=== PATIENT | female | born 1965 | race Caucasian/White ===

== ENCOUNTER 2024-06-12 21:23 | Emergency (ER) | payer BC ==
[2024-06-12 21:28] VITALS: BMI 25.2
[2024-06-12] MEDS ORDERED: ACETAMINOPHEN 325 MG TABLET (FP) ONE (22:24)
[2024-06-12] MEDS: ACETAMINOPHEN 500 MG TABLET (FP) PO ONE (22:36)
[2024-06-12 22:41] LABS: BASO % 0.2 % (0-2.0); HEMATOCRIT 38.2 % (32.4-45.2); HEMOGLOBIN 13.1 GM/dL (10.7-15.3); LYMPH % 20.4 % (8-40); MCH 31.5 pg (25.7-33.7); MCHC 34.2 g/dl (32.0-36.0); MONO % 6.5 % (3.8-10.2); NEUT % 70.9 % (42.8-82.8); PLATELET COUNT 377 10^3/uL (134-434); RBC 4.15 M/mm3 (3.60-5.2); WHITE BLOOD COUNT 11.4 K/mm3 (4.0-10.0)
[2024-06-12] MEDS: LACTATED RINGERS SOLUTION 1000 ML INFUS.BAG IV ONE (22:42)
[2024-06-12 22:43] LABS: VENOUS O2 SATURATION 88.9 % (70-80); VENOUS PCO2 38.6 mmHg (38-52); VENOUS PH 7.402 (7.310-7.410)
[2024-06-12 23:01] LABS: POTASSIUM 3.1 mmol/L (3.5-5.1)
[2024-06-12 23:03] LABS: ALBUMIN 3.8 g/dl (3.4-5.0); BLOOD UREA NITROGEN 14.4 mg/dL (7-18); CALCIUM 8.8 mg/dL (8.5-10.1)
[2024-06-12 23:07] LABS: CREATININE 0.6 mg/dL (0.55-1.3)
[2024-06-12 23:08] LABS: BILIRUBIN,TOTAL 0.2 mg/dL (0.2-1); TOT PROT 7.1 g/dl (6.4-8.2)
[2024-06-12] MEDS ORDERED: POTASSIUM CHLORIDE ORAL LIQUID 20 MEQ/15 ML ONE (23:28)
[2024-06-12 23:31] VITALS: RESP 16
[2024-06-12] MEDS: POTASSIUM CHLORIDE ORAL LIQUID 20 MEQ/15 ML PO ONE (23:31)
[2024-06-13 00:07] LABS: HIV INTERPRETATION NEGATIVE (NEGATIVE)
[2024-06-13 00:51] LABS: LACTIC ACID 2.4 mmol/L (0.4-2.0)
[2024-06-13 02:26] VITALS: BP 110/76; PULSE 79; TEMP 97.9
== END 2024-06-13 02:26 | disposition home or self-care (01) ==
LOC: JER 21:23
DX: R07.89 Other chest pain (principal); R51.9 Headache, unspecified; T46.1X1A Poisoning by calcium-channel blockers, accidental (unintentional), initial encounter
CPT/HCPCS: 36415; 80053; 82803; 83605; 83735; 84484; 85025; 86803; 87389; 93005; 93010; 99284-25